=== PATIENT | female | born 1990 | race Caucasian/White ===

== ENCOUNTER 2020-09-13 00:30 | Inpatient (IN) | payer OTHER ==
[~2020-09-13] VITALS: Ht 170.2 cm; Wt 87.7 kg
[2020-09-13] MEDS ORDERED: ONDANSETRON 2MG/ML, 2ML IVPush PRN ×2 (01:30→07:30)
[2020-09-13] MEDS ORDERED: FENTANYL PF 100 MCG/2ML IV PRN ×2 (01:30→07:30)
[2020-09-13] MEDS ORDERED: TERBUTALINE 1 MG/ML, 1ML SQ PRN (01:30)
[2020-09-13] MEDS ORDERED: TERBUTALINE 1 MG/ML, 1ML IVPush PRN (01:30)
[2020-09-13] MEDS ORDERED: OXYTOCIN 30U/ 0.9% NaCL 500ML 500 ML IV ONE (01:30)
[2020-09-13 01:32] VITALS: BP 123/77
[2020-09-13 01:42] LABS: BASOPHILS % (AUTO) 1 % (0-1); EOSINOPHILS % (AUTO) 1 % (1-7); LYMPHOCYTES % (AUTO) 19 % (22-44); MEAN CORPUSCULAR HEMOGLOBIN 30.1 pg (27.0-34.8); MEAN CORPUSCULAR HGB CONC 33.8 g/dL (32.4-35.8); MEAN PLATELET VOLUME 8.2 fL (7.4-10.4); MONOCYTES % (AUTO) 6 % (2-9); NEUTROPHILS % (AUTO) 72 % (42-75); PLATELET COUNT 229 x10^3/uL (130-400); RED BLOOD COUNT 4.04 x10^6/uL (3.82-5.3); RED CELL DISTRIBUTION WIDTH 15.4 % (9.6-15.2)
[2020-09-13] MEDS ORDERED: OXYTOCIN 30U/ 0.9% NaCL 500ML 500 ML ONE (07:01)
[2020-09-13] MEDS: LACTATED RINGERS 1,000 ML IV SCH ×3 (07:26→23:30)
[2020-09-13] MEDS ORDERED: METOCLOPRAMIDE 5 MG/ML, 2ML IVPush PRN (07:30)
[2020-09-13] MEDS ORDERED: FENTANYL PF 100 MCG/2ML IVPush PRN (07:30)
[2020-09-13] MEDS ORDERED: SODIUM CITRATE/CITRIC ACID 30 ML UDC PO PRN (07:30)
[2020-09-13] MEDS: OXYTOCIN 30U/ 0.9% NaCL 500ML 500 ML IV PRN (07:32)
[2020-09-13] MEDS: FENTANYL PF 100 MCG/2ML IVPush PRN ×3 (13:01→16:14)
[2020-09-13] MEDS: D5%-LACTATED RINGERS 1,000 ML IV SCH ×3 (13:06→23:30)
[2020-09-13] MEDS ORDERED: IBUPROFEN 600 MG TABLET ONE (18:27)
[2020-09-13] MEDS: IBUPROFEN 600 MG TABLET PO PRN (18:29)
[2020-09-13] MEDS ORDERED: MISOPROSTOL 200 MCG TABLET PR PRN (18:30)
[2020-09-13] MEDS ORDERED: CARBOPROST TROMETHAMINE 250 MCG/ML, 1ML IM PRN (18:30)
[2020-09-13] MEDS ORDERED: METHYLERGONOVINE 0.2 MG/ML IM PRN (18:30)
[2020-09-13] MEDS ORDERED: SIMETHICONE 80 MG CHEW TAB PO PRN (18:30)
[2020-09-13] MEDS ORDERED: ACETAMINOPHEN 325 MG TABLET PO PRN (18:30)
[2020-09-13] MEDS ORDERED: HYDROcodone/APAP 5/325 TABLET PO PRN ×2 (18:30)
[2020-09-13] MEDS ORDERED: OXYTOCIN 10 UNITS/ML, 1ML IM PRN (18:30)
[2020-09-13] MEDS ORDERED: ONDANSETRON 2MG/ML, 2ML IV PRN (18:30)
[2020-09-13] MEDS: OXYTOCIN 30U/ 0.9% NaCL 500ML 500 ML IV SCH (19:00)
[2020-09-13 20:24] VITALS: BP 111/60
[2020-09-14] MEDS: IBUPROFEN 600 MG TABLET PO PRN ×3 (01:06→19:33)
[2020-09-14 01:10] VITALS: BP 111/65
[2020-09-14 02:19] LABS: BASOPHILS % (AUTO) 0 % (0-1); EOSINOPHILS % (AUTO) 0 % (1-7); LYMPHOCYTES % (AUTO) 6 % (22-44); MEAN CORPUSCULAR HEMOGLOBIN 30.3 pg (27.0-34.8); MEAN CORPUSCULAR HGB CONC 33.8 g/dL (32.4-35.8); MEAN PLATELET VOLUME 8.2 fL (7.4-10.4); MONOCYTES % (AUTO) 6 % (2-9); NEUTROPHILS % (AUTO) 88 % (42-75); PLATELET COUNT 231 x10^3/uL (130-400); RED CELL DISTRIBUTION WIDTH 15.6 % (9.6-15.2)
[2020-09-14] MEDS: OXYTOCIN 30U/ 0.9% NaCL 500ML 500 ML IV SCH ×2 (04:30→14:30)
[2020-09-14] MEDS: D5%-LACTATED RINGERS 1,000 ML IV SCH ×2 (07:30→15:30)
[2020-09-14] MEDS: LACTATED RINGERS 1,000 ML IV SCH ×2 (07:30→15:30)
[2020-09-14 08:00] VITALS: BP 96/54
[2020-09-14] MEDS: PRENATAL VIT/IRON/FA 1 EACH TABLET PO SCH (09:00)
[2020-09-14 12:00] VITALS: BP 97/60
[2020-09-14 16:00] VITALS: BP 102/65
[2020-09-14] MEDS: FENTANYL PF 100 MCG/2ML IVPush PRN (17:36)
[2020-09-14 19:30] VITALS: BP 95/60
[2020-09-14] MEDS: DOCUSATE 100 MG CAPSULE PO PRN (19:31)
[2020-09-15] MEDS: OXYTOCIN 30U/ 0.9% NaCL 500ML 500 ML IV PRN (02:57)
[2020-09-15] MEDS ORDERED: IBUP-1222 PO (07:41)
[2020-09-15 08:05] VITALS: BP 105/69
[2020-09-15] MEDS: PRENATAL VIT/IRON/FA 1 EACH TABLET PO SCH (08:45)
[2020-09-15] MEDS: IBUPROFEN 600 MG TABLET PO PRN (08:45)
[2020-09-15] MEDS: DOCUSATE 100 MG CAPSULE PO PRN (08:45)
== END 2020-09-15 10:00 | disposition home or self-care (01) | DRG 807 ==
LOC: LDOP 00:30 → LDIP 01:19 → 2NW 20:20
PROVIDERS: ADMIT Obstetrics & Gynecology; ATTEND Obstetrics & Gynecology
PROC: 10E0XZZ Delivery of Products of Conception, External Approach (ICD-10-PCS; principal; 2020-09-13)
DX: O70.0 First degree perineal laceration during delivery (principal); Z37.0 Single live birth; Z3A.40 40 weeks gestation of pregnancy; Z20.822 Contact with and (suspected) exposure to COVID-19
CPT/HCPCS: 36415; J7121; 85025; 86592; 86850; 86900; 87635; G0378; J3010; J2590; J7120